=== PATIENT | male | born 1950 | race Hispanic/Latino ===

== ENCOUNTER 2021-05-17 23:43 | Emergency (ER) | payer MEDICARE ==
[~2021-05-17] VITALS: Ht 167.6 cm; Wt 105.2 kg
[2021-05-18] MEDS ORDERED: KETOROLAC TROMETHAMINE 60 MG/2 ML VIAL IM ONE (00:15)
[2021-05-18] MEDS ORDERED: GABAPENTIN300 MG PO (00:42)
[2021-05-18] MEDS ORDERED: IBUPROFEN600 MG PO (00:42)
[2021-05-18] MEDS ORDERED: KETOROLAC TROMETHAMINE 30 MG/ML VIAL IM STA (01:13)
[2021-05-18] MEDS ORDERED: KETOROLAC TROMETHAMINE 30 MG/ML VIAL ONE (01:21)
== END 2021-05-18 01:40 | disposition home or self-care (01) ==
LOC: ER 23:52
DX: M54.32 Sciatica, left side (principal); M54.31 Sciatica, right side; I10 Essential (primary) hypertension; E11.9 Type 2 diabetes mellitus without complications; E78.5 Hyperlipidemia, unspecified; Z85.46 Personal history of malignant neoplasm of prostate
CPT/HCPCS: 93926; 99282; J1885